=== PATIENT | male | born 1955 | race Caucasian/White ===

== ENCOUNTER → 2020-05-20 | Outpatient (CLI) | payer MEDICARE, OTHER ==
[2020-05-20 10:27] LABS: ALANINE AMINOTRANSFERASE 26 U/L (0-55); ALBUMIN 4.3 GM/DL (3.2-4.5); ALKALINE PHOSPHATASE 105 U/L (40-136); BILIRUBIN,TOTAL 0.4 MG/DL (0.1-1.0); BUN/CREATININE RATIO 24; CALCIUM 9.8 MG/DL (8.5-10.1); CARBON DIOXIDE 24 MMOL/L (21-32); CHLORIDE 107 MMOL/L (98-107); CREATININE SERUM 0.75 MG/DL (0.60-1.30); GFR ESTIMATED > 60; GLUCOSE 105 MG/DL (70-105); POTASSIUM 4.5 MMOL/L (3.6-5.0); SODIUM 140 MMOL/L (135-145); TOTAL PROTEIN 6.8 GM/DL (6.4-8.2)
[2020-05-20 14:51] LABS: CHOLESTEROL 181 MG/DL (< 200); HDL CHOLESTEROL 55 MG/DL (40-60); TRIGLYCERIDES 64 MG/DL (<150); VLDL CHOLESTEROL 13 MG/DL (5-40)
== END ==
LOC: LAB FS 09:41
PROVIDERS: ATTEND Family Medicine
DX: I10 Essential (primary) hypertension (principal)
CPT/HCPCS: 36415; 80053; 80061

== ENCOUNTER → 2020-09-29 | Outpatient (CLI) | payer MEDICARE, OTHER ==
[~2020-09-29] MED LIST: CATHETER FLUSH 10 ML SYR IV PRN; HOLD METFORMIN - RECEIVED CONTRAST 20 ML VIAL IV SCH; IOHEXOL 350 MG/ML 100 ML (OMNIPAQUE 350) VIAL IV ONE; NS 100 ML (IVPB) BAG IV ONE; RT-ALBUTEROL SULF 2.5 MG/3 ML PRE-MIX VIAL INH ONE
[2020-09-29 07:36] LABS: ALANINE AMINOTRANSFERASE 21 U/L (0-55); ALBUMIN 3.9 GM/DL (3.2-4.5); ALKALINE PHOSPHATASE 100 U/L (40-136); BILIRUBIN,TOTAL 0.4 MG/DL (0.1-1.0); BUN/CREATININE RATIO 23; CALCIUM 9.2 MG/DL (8.5-10.1); CARBON DIOXIDE 25 MMOL/L (21-32); CHLORIDE 108 MMOL/L (98-107); CHOLESTEROL 158 MG/DL (< 200); CREATININE SERUM 0.78 MG/DL (0.60-1.30); GFR ESTIMATED > 60; GLUCOSE 102 MG/DL (70-105); HDL CHOLESTEROL 52 MG/DL (40-60); POTASSIUM 3.8 MMOL/L (3.6-5.0); SODIUM 140 MMOL/L (135-145); TOTAL PROTEIN 6.4 GM/DL (6.4-8.2); TRIGLYCERIDES 58 MG/DL (<150); VLDL CHOLESTEROL 12 MG/DL (5-40)
--- NOTE | 2020-09-29 10:53 | Diagnostic Imaging Report ---
EXAMINATION: CT Chest with intravenous contrast. TECHNIQUE: Multiple contiguous axial images were obtained through the chest after the uneventful administration of intravenous contrast. All CT scans use one or more of the following dose optimizing techniques: automated exposure control, MA and/or KvP adjustment based on a patient size and exam type, or iterative reconstruction. HISTORY: COUGH COMPARISON: None available. FINDINGS: Thyroid: The thyroid is normal. Mediastinum: Heart size is normal without significant pericardial effusion. The aorta is normal in caliber. No suspicious lymphadenopathy. Lungs and airways: There are a few patchy groundglass opacities within the periphery the right lower lobe (series 3 image 96). No pleural effusion or pneumothorax. There is a 1.2 cm round pulmonary nodule within the left lower lobe (series 3 image 105). The airways are normal. Upper abdomen: There is a small hiatal hernia. Musculoskeletal: Compression deformities of the T5 and T10 vertebral bodies. No suspicious osseous lesion. There are multiple chronic left rib fractures. IMPRESSION: 1. A 1.2 cm left lower lobe pulmonary nodule. This could be further evaluated with short-term CT followup in 3 months, PET/CT, or CT-guided biopsy. 2. Patchy peripheral ground glass opacities within the right lower lobe may represent atelectasis or atypical infection. Attention on followup imaging. 3. Age-indeterminate compression deformity T5 and T10 vertebral bodies. Dictated by: Dictated on workstation # [id number]
== END ==
LOC: RT 08:00
PROVIDERS: ATTEND Family Medicine
DX: M51.04 Intervertebral disc disorders with myelopathy, thoracic region (principal); R91.1 Solitary pulmonary nodule; I10 Essential (primary) hypertension; R05 Cough
CPT/HCPCS: 71260; 80053; 80061; 94060; 94726; 94729; G0103; 36415; 84153

== ENCOUNTER → 2020-11-03 | Outpatient (CLI) | payer MEDICARE, OTHER ==
--- NOTE | 2020-11-03 13:35 | Diagnostic Imaging Report ---
INDICATION: Abnormal CT with lung mass in left lower lobe. Study is performed for further evaluation. TECHNIQUE: Serum blood glucose level at the time of injection is 94 mg/dL. Patient was administered 13.6 mCi F-18 FDG intravenously in the right antecubital location and PET imaging was performed from the top of skull to mid thighs. Noncontrast CT was also performed for attenuation correction and anatomic correlation. COMPARISON: No prior PET/CT studies available for comparison. Comparison is made with recent CT chest from 09/29/2020. FINDINGS: There is symmetric activity throughout the brain. Soft tissues of the neck are unremarkable. No mediastinal or hilar hypermetabolism is identified. No pulmonary parenchymal hypermetabolism is identified. In particular, no definite hypermetabolic nodule in the left lower lobe is seen. There is physiologic activity throughout the gastrointestinal and genitourinary tracts of the abdomen and pelvis. No suspicious hypermetabolic foci are identified. IMPRESSION: Unremarkable PET/CT study. No suspicious hypermetabolic foci are identified. In particular, no hypermetabolic nodule in the left lower lobe is identified to account for the nodule noted on CT. Even so, close follow-up with repeat CT chest in three months is recommended to show continued stability. Dictated by: Dictated on workstation # [id number]
== END ==
LOC: RAD 09:35
PROVIDERS: ATTEND Nurse Practitioner Family
DX: J45.909 Unspecified asthma, uncomplicated (principal); R91.8 Other nonspecific abnormal finding of lung field
CPT/HCPCS: 78815; A9552

== ENCOUNTER → 2021-01-19 | Outpatient (CLI) | payer MEDICARE, OTHER ==
[~2021-01-19] MED LIST changes: -RT-ALBUTEROL SULF 2.5 MG/3 ML PRE-MIX VIAL INH ONE
[2021-01-19 08:14] LABS: BUN/CREATININE RATIO 21; CREATININE SERUM 0.78 MG/DL (0.60-1.30); GFR ESTIMATED > 60
--- NOTE | 2021-01-19 09:10 | Diagnostic Imaging Report ---
PROCEDURE: CT chest with contrast only. TECHNIQUE: Multiple contiguous axial images were obtained through the chest after administration of intravenous contrast. Auto Exposure Controls were utilized during the CT exam to meet ALARA standards for radiation dose reduction. DATE: January 19, 2021. COMPARISON: CT chest September 29, 2020. INDICATION: 65-year-old male, follow-up pulmonary nodule. FINDINGS: The lung bases are not entirely included in the [id number] of imaging. There is a noncalcified 6 mm left lower lobe pulmonary nodule on axial image 108. The nodule is decreased in size since September 29, 2020. This nodule previously measured 11 mm in size at that time. There are adjacent pleurally based left lower lobe pulmonary nodules on axial image 4 and adjacent sequential images with the largest measuring up to 6 mm in size. These are unchanged since September 29, 2020. There is no new or enlarging pulmonary nodule. There is no otherwise noted focal airspace consolidation. There is no pneumothorax. There is no pleural effusion. The central airways are patent. There is no identified pulmonary embolus. The heart is not enlarged. There is no pericardial effusion. There is no identified abnormally enlarged mediastinal, hilar, or axillary lymph node meeting CT size criteria for adenopathy. The imaged portions of the upper abdomen are unremarkable. There are incompletely healed fractures of the left ninth, 10th, and 11th ribs. There are bilateral glenohumeral arthritic changes. The left-sided rib fractures are present on at least September 29, 2020. There is a compression deformity of T5 and also of T10, both of which are unchanged since at least September 29, 2020. IMPRESSION: CT CHEST. 1. 6 mm left lower lobe pulmonary nodule which is decreased in size since September 29, 2020. Particularly if no intervention has been performed, this would be compatible with granulomatous, inflammatory, or infectious etiology. 2.. Pleurally-based subcentimeter left lower lobe pulmonary nodule stable since at least September 29, 2020. The largest of these measures 6 mm in size. 3. Prior fracture deformities of the left ninth, 10th, and 11th ribs as well as prior compression deformities of T5 and T10. Dictated by: Dictated on workstation # [id number]
== END ==
LOC: RAD 08:45
PROVIDERS: ATTEND Nurse Practitioner Family
DX: R91.8 Other nonspecific abnormal finding of lung field (principal)
CPT/HCPCS: 36415; 71260; 82565; 84520

== ENCOUNTER → 2021-04-12 | Outpatient (CLI) | payer MEDICARE, OTHER ==
--- NOTE | 2021-04-12 09:45 | Diagnostic Imaging Report ---
PROCEDURE: US Abdomen, limited. TECHNIQUE: Multiple realtime grayscale images were obtained over the abdomen in various projections. INDICATION: Right upper quadrant pain and mass FINDINGS: No mass or fluid collection sonographically apparent. There is sludge in the gallbladder but no shadowing calculi. The gallbladder wall 2 mm non-thickened. There was a negative Lees's sign. There is no bile duct dilatation. Portal vein patent and showed normal hepatopetal directional flow. Liver parenchyma appeared unremarkable. There is no ascites. The unobstructed right kidney appeared normal at 10.1 cm. The visualized portions of the pancreas, aorta and IVC unremarkable. IMPRESSION: Likely small amounts of gallbladder sludge but no stone or cholecystitis. No bile duct dilatation or ascites. No solid or cystic mass sonographically apparent. Dictated by: Dictated on workstation # [id number]
== END ==
LOC: RAD FS 07:15
PROVIDERS: ATTEND Family Medicine
DX: R19.01 Right upper quadrant abdominal swelling, mass and lump (principal); R10.11 Right upper quadrant pain
CPT/HCPCS: 76705

== ENCOUNTER 2021-06-10 05:37 | Outpatient (CLI) | payer MEDICARE, OTHER ==
[~2021-06-10] VITALS: Ht 167.7 cm; Wt 71.4 kg
[2021-06-10] MEDS ORDERED: LOSA1TAB26 PO (15:47)
[2021-06-10] MEDS ORDERED: PRAV20TA3 PO (15:47)
[2021-06-10] MEDS ORDERED: ZOLP10TA PO (15:47)
[2021-06-10] MEDS ORDERED: CALC600T91 PO (15:47)
== END 2021-06-10 15:50 | disposition home or self-care (01) ==
LOC: PREOP 05:37
PROVIDERS: ATTEND Surgery
DX: Z01.818 Encounter for other preprocedural examination (principal)

== ENCOUNTER 2021-06-17 09:15 | Day surgery (SDC) | payer MEDICARE, OTHER ==
--- NOTE | 2021-05-25 14:16 | HISTORY AND PHYSICAL ---
DATE OF SERVICE: DATE OF ADMISSION: ____. ATTENDING PRIMARY CARE PHYSICIAN: Emelina Anna. HISTORY OF PRESENT ILLNESS: The patient is a 66-year-old male who is known to us. He was seen several months ago for a right inguinal hernia, which he reports he first noticed about a year ago, which had become larger in size. He did report a bulging, but denied any pain. It was decided, at that time that he wanted to wait until after his right total knee replacement in April of this year. He was then seen at the end of March of this year and reports he was seen by his primary care physician for complaints of diarrhea for the past three months that occurred after eating. He did undergo a gallbladder ultrasound, which did show a biliary sludge. Upon further questioning, he denied any abdominal pain as well as no nausea or vomiting. He also denied any heartburn or reflux. He does report a family history of gallbladder disease with his mother having her gallbladder removed. PAST MEDICAL HISTORY: Hypertension, hypercholesterolemia, and insomnia. PAST SURGICAL HISTORY: Right leg ORIF, tonsillectomy, and right total knee replacement in 04/2021. ALLERGIES: No known drug allergies. MEDICATIONS: Calcium, zolpidem 10 mg at bedtime, losartan potassium/hydrochlorothiazide 100/12.5 mg daily, and Pravastatin 20 mg daily. SOCIAL HISTORY: Negative for tobacco smoke. Negative for alcohol. FAMILY HISTORY: Mother, hypertension. Brother, diabetes. Paternal grandfather, diabetes. REVIEW OF SYSTEMS: This is a well-nourished male in no acute distress. He is not experiencing any shortness of breath or difficulty breathing. No chest pain, palpitations or diaphoresis. No nausea, vomiting or abdominal pain. He does report frequent episodes of diarrhea, especially after eating, but denies any constipation. No red blood per rectum. No dark tarry stools. No fever or chills. No recent inadvertent weight loss. All other review of systems negative. PHYSICAL EXAMINATION: VITAL SIGNS: Blood pressure is 118/64. Current weight is 157.2 pounds at 5 feet 6 inches. CHEST: Clear. Good breath sounds bilaterally. HEART: Regular, no murmurs. EXTREMITIES: No lower extremity edema. Negative Homans sign. HEENT: No scleral icterus. NECK: No cervical lymphadenopathy. ABDOMEN: Soft and nondistended. There is a right inguinal hernia present, which is reducible; however, tender to palpation. There was no left inguinal hernia identified. SKIN: Warm, dry and pink. NEUROLOGIC: Awake, alert and oriented x3. ASSESSMENT AND PLAN: A 65-year-old male with a symptomatic right inguinal hernia as well as chronic calculous cholecystitis. At this time, the risks and benefits of the procedure as well as the procedure and home care instructions were explained to the patient. The patient verbalized understanding of instructions and agrees to proceed as planned. At this time, we will proceed with scheduling him for a laparoscopic right inguinal hernia repair with mesh and a laparoscopic cholecystectomy. CC: Dr. Emelina Anna - requested, unable to deliver. Job ID: [id number] DocumentID: [id number] Dictated Date: 05/25/2021 13:34:59 Pearl Peller Date: 05/25/2021 13:53:45 Dictated By: MICHAEL JAMA APRN
[2021-06-17] VITALS (11 sets, daily range): BP systolic 119–148; BP diastolic 78–96
[~2021-06-17] VITALS: Ht 167.7 cm; Wt 71.4 kg
[~2021-06-17 09:15] MED LIST changes: +CALC600T91 PO; -CATHETER FLUSH 10 ML SYR IV PRN; -HOLD METFORMIN - RECEIVED CONTRAST 20 ML VIAL IV SCH; -IOHEXOL 350 MG/ML 100 ML (OMNIPAQUE 350) VIAL IV ONE; +LOSA1TAB26 PO; -NS 100 ML (IVPB) BAG IV ONE; +PRAV20TA3 PO; +ZOLP10TA PO
--- NOTE | 2021-06-17 09:24 | Progress Note-Pre Operative ---
Pre-Operative Progress Note H&P Reviewed The H&P was reviewed, patient examined and no changes noted. Date Seen by Provider: Jun 17, 2021 Time Seen by Provider: 09:20 Date H&P Reviewed: Jun 17, 2021 Time H&P Reviewed: 09:15 Pre-Operative Diagnosis: Right inguinal hernia and chronic calculous cholecystitis MICHAEL JAMA APRN Jun 17, 2021 09:24
[2021-06-17] MEDS ORDERED: HYDR-3817 PO (09:25)
--- NOTE | 2021-06-17 09:26 | Discharge Inst-Surgical ---
D/C Lap Instructions-KIDO Reconcile Patient Problems Problems Reviewed?: Yes New, Converted, or Re-Newed RX: RX on Chart Follow Up Appt in 2 weeks Activity as tolerated No driving for 24 hours No driving while on pain medications Incentive Spirometry use every 2 hours while awake Regular Diet Symptoms to Report: Fever over 101 degree F, Nausea/Vomiting Infection Signs and Symptoms to report: Increased redness, Foul odor of wound, Increased drainage Bathing instructions: May shower Operative Area Clean/Dry; Keep incision clean/dry If any problems/questions: Contact your physician or go to Emergency Room MICHAEL JAMA APRN Jun 17, 2021 09:26
[2021-06-17] MEDS ORDERED: ONDANSETRON 4 MG/2 ML (SDV) Z0FRAN IVP PRN ×2 (09:30→13:00)
[2021-06-17] MEDS ORDERED: morphine INJ 10 MG/ML 1ML (SYR OR VIAL) IVP PRN (09:30)
[2021-06-17] MEDS ORDERED: ACETAMINOPHEN 325 MG TABLET PO PRN (09:30)
[2021-06-17] MEDS ORDERED: HYDROcodone/APAP 5 MG/325 MG (LORTAB) TAB PO ONE (09:30)
[2021-06-17] MEDS ORDERED: ceFAZolin INJECTION 1,000 MG in WATER (STERILE) FOR INJECTION 10 ML IV ONE (09:30)
[2021-06-17] MEDS: LACTATED RINGERS 1,000 ML IV PRN ×2 (10:00→11:55)
[2021-06-17] MEDS ORDERED: LIDOCAINE/EPI 1%-1:200,000 (XYLOCAINE) 30 ML VIAL ONE (10:02)
[2021-06-17] MEDS ORDERED: ONDANSETRON 4 MG/2 ML (SDV) Z0FRAN ONE (10:24)
[2021-06-17] MEDS ORDERED: ROCURONIUM 10 MG/ML 5 ML SYRINGE IV ONE (10:24)
[2021-06-17] MEDS ORDERED: LIDOCAINE PF 2% 5 ML (XYLOCAINE) VIAL ONE (10:24)
[2021-06-17] MEDS ORDERED: MIDAZOLAM 2 MG/2 ML (VERSED) VIAL ONE (10:24)
[2021-06-17] MEDS ORDERED: fentaNYL INJ 100 MCG/2 ML AMP ONE (10:24)
[2021-06-17] MEDS ORDERED: proPOfol 200 MG/20 ML (DIPRIVAN) VIAL IV ONE (10:24)
[2021-06-17] MEDS ORDERED: GLYCOPYRROLATE 0.2 MG/ML (ROBINUL) 2 ML VIAL ONE (10:24)
[2021-06-17] MEDS ORDERED: NEOSTIGMINE 3 MG/3 ML VIAL ONE (10:24)
[2021-06-17] MEDS ORDERED: SEVOFLURANE (ULTANE) 15 ML INHAL SOLN ONE (12:53)
--- NOTE | 2021-06-17 12:58 | Progress Note-Post Operative ---
Post-Operative Progess Note Surgeon (s)/In Store Marketer (s) Surgeon JEZ GASTON MD In Store Marketer: none Pre-Operative Diagnosis Right inguinal hernia and chronic calculous cholecystitis Post-Operative Diagnosis same Procedure & Operative Findings Date of Procedure 06/17/21 Procedure Performed/Findings laparoscopic right inguinal hernia repair with mesh. laparoscopic cholecystectomy. Anesthesia Type get Estimated Blood Loss Estimated blood loss (mL): minimal Specimens/Packing Specimens Removed gallbladder JEZ GASTON MD Jun 17, 2021 12:58
[2021-06-17] MEDS ORDERED: morphine INJ 10 MG/ML 1ML (SYR OR VIAL) IVP ONE (13:00)
[2021-06-17] MEDS ORDERED: HYDROmorphone 2 MG/ML VIAL (DILAUDID) IV ONE (13:00)
--- NOTE | 2021-06-17 14:06 | OPERATIVE REPORT ---
DATE OF SERVICE: 06/17/2021 ATTENDING PRIMARY CARE PHYSICIAN: Dr. Emelina Anna. PREOPERATIVE DIAGNOSES: 1. Symptomatic chronic calculous cholecystitis. 2. Symptomatic reducible right inguinal hernia. POSTOPERATIVE DIAGNOSES: 1. Symptomatic chronic calculous cholecystitis. 2. Symptomatic reducible right inguinal hernia. PROCEDURE: Laparoscopic right inguinal hernia repair with mesh, laparoscopic cholecystectomy. SURGEON: Jez Gaston MD. ANESTHESIA: General endotracheal. ESTIMATED BLOOD LOSS: Minimal. FINDINGS: 1. Symptomatic chronic calculous cholecystitis. 2. Symptomatic reducible right inguinal hernia. DISPOSITION: The patient tolerated the procedure well. INDICATIONS: The patient is a 66-year-old male who has two separate issues. He reports that he has had pain and bloating in the right upper abdominal quadrant as well as diarrhea on intermittent basis. He states that this was initially mild; however, has become worse and due to this, he has lost weight in the past few months. An ultrasound was performed, which was consistent with biliary sludge. He also does have a symptomatic right inguinal hernia, he states this has been around for years; however, has grown larger in size and become painful. Upon examination, he was found to have a right reducible inguinal hernia; however, tender to palpation. DESCRIPTION OF PROCEDURE: The patient was brought to the operating room, laid supine on the table. After adequate IV pain and sedative medications and general endotracheal intubation, the abdomen was prepped and draped in standard surgical fashion. A 0.5% Marcaine with epinephrine was used to anesthetize overlying skin in the left lateral abdomen and a transverse skin incision made using a 15 blade. An 0 silk suture was applied to the medial aspect of the incision for retraction and a Veress needle inserted with a low opening pressure of 0 mmHg. The abdomen was then insufflated to 15 mmHg pressure. The Veress needle removed, and a 5 mm XL trocar placed followed by a 5 mm 45-degree angle laparoscope visualizing the peritoneal cavity. A 4-quadrant abdominal exploration was performed. There were omental adhesions towards the fundus of the gallbladder. There was a right indirect inguinal hernia with nothing within the hernia sac. No left inguinal hernia component. Under direct visualization, we proceeded to place a supraumbilical 10 mm port after the skin and peritoneal lining were anesthetized using 0.5% Marcaine with epinephrine and a transverse skin incision made using 15 blade. In a similar manner, a right lateral 5 mm port was placed. The patient was then placed in Trendelenburg position. The peritoneal lining was then opened towards the conjoined tendon and inguinal ligament laterally using the Sonicision. We then proceeded medially until Chacorta's ligament identified. We then proceeded with inferior dissection encompassing the hernia sac. The cord and its surrounding contents identified and spared throughout the process. Good hemostasis was observed and a 3DMax polypropylene mesh was then placed through the 10 mm port and tacked to Chacorta's ligament medially and the conjoined tendon and inguinal ligament laterally using absorbable tacks. The peritoneal lining was then placed over the mesh and a few tacks placed to hold this in place with visualization of good hemostasis. The patient was then placed in reverse Trendelenburg position and plane right side up, left side down. The fundus of the gallbladder was then retracted anteriorly and superiorly. The omental adhesions were then taken down using electrocautery on the hook instrument. The hepatoduodenal ligament was then opened using blunt dissection as well as electrocautery on hook instrument. The entire critical view of safety was identified including the triangle of Calot as well as the cystic duct and artery as only two structures going into the gallbladder as well as the cystic plate behind the proximal gallbladder. A timeout was then taken, and the cystic duct and artery were then clipped proximally and distally and cut with EndoShears. The gallbladder was then dissected off the liver bed using cautery on hook instrument with visualization of good hemostasis as well as no leaking ducts of Luschka. The gallbladder was removed through the 10 mm port site using an EndoCatch bag. The 10 mm port site fascia and peritoneum were then closed under direct visualization using a Reji-Willie device and 0 Vicryl suture. The abdomen was desufflated and the remaining ports removed. All skin incisions were closed using 4-0 Monocryl running subcuticular sutures. Wounds were then cleaned and covered with Dermabond. The patient tolerated the procedure well. We will start IV normal pain medication as well as a clear liquid diet. Once he is tolerating clears, has good pain control with oral pain medications, ambulating well, we will discharge him home where he will be instructed to do no heavy lifting or exertion definitely for the first 2 weeks; however, after 2 weeks, he still may not proceed with 100% activity and lifting and to slowly work up to the point of 6 weeks for he then does not have any restrictions. Job ID: [id number] DocumentID: [id number] Dictated Date: 06/17/2021 13:15:45 Vp Cardiovascular Date: 06/17/2021 14:06:02 Dictated By: JEZ GASTON MD
[2021-06-17] MEDS ORDERED: HYDROcodone/APAP 5 MG/325 MG (LORTAB) TAB ONE (14:49)
== END 2021-06-17 15:00 | disposition home or self-care (01) ==
LOC: SDC 09:15
PROVIDERS: ATTEND Surgery
DX: K80.10 Calculus of gallbladder with chronic cholecystitis without obstruction (principal); K40.90 Unilateral inguinal hernia, without obstruction or gangrene, not specified as recurrent; I10 Essential (primary) hypertension; J45.909 Unspecified asthma, uncomplicated; E78.00 Pure hypercholesterolemia, unspecified; Z79.899 Other long term (current) drug therapy
CPT/HCPCS: 47562; 49650; 87081; C1781

== ENCOUNTER → 2021-12-17 | Outpatient (CLI) | payer MEDICARE, OTHER ==
[~2021-12-17] MED LIST changes: +HYDR-3817 PO
--- NOTE | 2021-12-17 08:27 | Diagnostic Imaging Report ---
PROCEDURE: CT sinuses without contrast TECHNIQUE: Multiple contiguous axial images were obtained through the sinuses without the use of intravenous contrast. Coronal and sagittal reformations were then performed. Auto Exposure Controls were utilized during the CT exam to meet ALARA standards for radiation dose reduction. INDICATION: Chronic sinusitis. FINDINGS: There is rightward deviation of the nasal septum with posterior leftward nasal septal spurring. There is moderately severe mural thickening throughout the frontal, sphenoid and maxillary sinuses with opacification of ethmoid air cells. This does appear to occlude the ostiomeatal complexes bilaterally. Mastoid air cells are clear as are middle ear cavities. No definite bone destruction is seen. There is no obvious air-fluid level. Note is made of impacted retrograde incisor to the left of midline in the left maxilla. IMPRESSION: Extensive chronic pain sinusitis without air-fluid level or definite bone destruction. Dictated by: Dictated on workstation # [id number]
== END ==
LOC: RAD FS 07:55
PROVIDERS: ATTEND Otolaryngology Otolaryngology/Facial Plastic Surgery
DX: J32.9 Chronic sinusitis, unspecified (principal)
CPT/HCPCS: 70486

== ENCOUNTER 2022-02-17 08:16 | Outpatient (CLI) | payer MEDICARE, OTHER ==
[~2022-02-17] VITALS: Ht 167.7 cm; Wt 72.7 kg
[2022-02-17 09:15] VITALS: BP 109/81
[2022-02-17 09:32] LABS: BASOPHILS # (AUTO) 0.1 10^3/uL (0.0-0.1); BASOPHILS % (AUTO) 1 % (0-10); EOSINOPHILS # (AUTO) 0.3 10^3/uL (0.0-0.3); EOSINOPHILS % (AUTO) 4 % (0-10); HEMATOCRIT 36 % (40-54); HEMOGLOBIN 12.2 g/dL (13.3-17.7); LYMPHOCYTES % (AUTO) 15 % (12-44); MEAN CORPUSCULAR HEMOGLOBIN 30 pg (25-34); MEAN CORPUSCULAR HGB CONC 34 g/dL (32-36); MEAN CORPUSCULAR VOLUME 89 fL (80-99); MEAN PLATELET VOLUME 8.5 fL (9.0-12.2); MONOCYTES # (AUTO) 0.6 10^3/uL (0.0-1.0); MONOCYTES % (AUTO) 9 % (0-12); NEUTROPHILS # (AUTO) 4.9 10^3/uL (1.8-7.8); NEUTROPHILS % (AUTO) 71 % (42-75); PLATELET COUNT 290 10^3/uL (130-400); WHITE BLOOD COUNT 6.8 10^3/uL (4.3-11.0)
[2022-02-17 09:41] LABS: CALCIUM 9.6 MG/DL (8.5-10.1)
[2022-02-17 09:46] LABS: CREATININE SERUM 0.76 MG/DL (0.60-1.30)
--- NOTE | 2022-02-17 11:30 | Diagnostic Imaging Report ---
INDICATION: Pulmonary nodules. Comparison with CT chest from 01/19/2021. FINDINGS: PA and lateral views. Lungs are well aerated. The nodules noted on the left lower lobe on previous CT scan measuring less than 1 cm are not appreciated on today's exam. There are no infiltrates. Heart is not enlarged. No hilar adenopathy. No pneumothorax or pleural effusion. There are old compression fractures of T5 and T10 which do not appear changed. Also old healed rib fractures on the left noted. IMPRESSION: No acute abnormalities demonstrated when compared with previous CT scan. Dictated by: Dictated on workstation # [id number]
== END 2022-02-17 09:34 ==
LOC: PREOP 08:16
PROVIDERS: ATTEND Otolaryngology Otolaryngology/Facial Plastic Surgery
DX: Z01.818 Encounter for other preprocedural examination (principal); J33.9 Nasal polyp, unspecified; J32.4 Chronic pansinusitis
CPT/HCPCS: 36415; 71046; 80048; 85025; 87081; 93005

== ENCOUNTER 2022-02-25 07:25 | Day surgery (SDC) | payer MEDICARE, OTHER ==
[2022-02-25] VITALS (10 sets, daily range): BP systolic 132–161; BP diastolic 93–115
[2022-02-25] MEDS ORDERED: BSS 15 ML ONE (07:47)
[2022-02-25] MEDS ORDERED: LIDOCAINE/EPI 2% 1:200,00 (XYLOCAINE) 10 ML VIAL ONE (07:47)
[2022-02-25] MEDS ORDERED: COCAINE HCL 4% 2 ML SYR ONE (07:47)
[2022-02-25] MEDS ORDERED: PHENYLEPHRINE 0.5% NASAL SPR (NEO-SYNEPHRINE) REG ONE (07:47)
[2022-02-25] MEDS ORDERED: HYDROCORTISONE 100 MG/2 ML (Solu-CORTEF) VIAL IV SCH (08:15)
[2022-02-25] MEDS ORDERED: fentaNYL INJ 100 MCG/2 ML AMP ONE (08:21)
[2022-02-25] MEDS ORDERED: MIDAZOLAM 2 MG/2 ML (VERSED) VIAL ONE (08:21)
[2022-02-25] MEDS ORDERED: ROCURONIUM 50 MG/5 ML (ZEMURON) VIAL IV ONE (08:21)
[2022-02-25] MEDS ORDERED: ONDANSETRON 4 MG/2 ML (SDV) Z0FRAN ONE (08:21)
[2022-02-25] MEDS ORDERED: proPOfol 200 MG/20 ML (DIPRIVAN) VIAL IV ONE (08:21)
[2022-02-25] MEDS ORDERED: LIDOCAINE PF 2% 5 ML (XYLOCAINE) VIAL ONE (08:21)
[2022-02-25] MEDS: LACTATED RINGERS 1,000 ML IV PRN ×2 (08:26→09:23)
--- NOTE | 2022-02-25 08:51 | Progress Note-Pre Operative ---
Pre-Operative Progress Note H&P Reviewed The H&P was reviewed, patient examined and no changes noted. Date Seen by Provider: Feb 25, 2022 Time Seen by Provider: 08:30 Date H&P Reviewed: Feb 25, 2022 Time H&P Reviewed: 08:30 Pre-Operative Diagnosis: Bilat Chronic Sinusitis, Dev septum hyper inf turbs MAYTE CHAO MD Feb 25, 2022 08:51
--- NOTE | 2022-02-25 08:52 | Progress Note-Post Operative ---
Post-Operative Progess Note Surgeon (s)/Hoop Coiling Machine Operator (s) Surgeon MAYTE CHAO MD Hoop Coiling Machine Operator n/a Pre-Operative Diagnosis Bilat Chronic Sinusitis, Dev septum hyper inf turbs Post-Operative Diagnosis same Post-Op Procedure Note Date of Procedure: Feb 25, 2022 Name of Procedure Performed: Bilat ESs with REmoval of Nasal Polyps, Nasal Septoplasty, Bilat Reduction of INf Turbs Description & Findings Description and Findings: n/a Anesthesia Type get Estimated Blood Loss minimal Packing none. Specimen(s) collected/removed bilat chornic sinusitis MAYTE CHAO MD Feb 25, 2022 08:52
[2022-02-25] MEDS ORDERED: predniSONE 20 MG TAB PO ONE ×2 (09:00→12:30)
[2022-02-25] MEDS ORDERED: D5 1/2 NS W/KCL 20 MEQ/L 1,000 ML IV SCH (09:00)
[2022-02-25] MEDS ORDERED: PROMETHAZINE INJ 25 MG/ML (PHENERGAN) AMP IVP PRN (09:00)
[2022-02-25] MEDS ORDERED: HYDROcodone/APAP 5 MG/325 MG (LORTAB) TAB PO PRN (09:00)
[2022-02-25] MEDS: AMPICILLIN/SULBACTAM INJECTION 1.5 GM in NS (IVPB) 100 ML IV SCH ×2 (09:13→12:08)
[2022-02-25] MEDS ORDERED: GLYCOPYRROLATE 0.2 MG/ML (ROBINUL) 2 ML VIAL ONE (10:02)
[2022-02-25] MEDS ORDERED: NEOSTIGMINE 3 MG/3 ML VIAL ONE (10:02)
[2022-02-25] MEDS ORDERED: SEVOFLURANE (ULTANE) 15 ML INHAL SOLN ONE (10:10)
[2022-02-25] MEDS ORDERED: ONDANSETRON 4 MG/2 ML (SDV) Z0FRAN IVP PRN (10:30)
[2022-02-25] MEDS ORDERED: HYDROmorphone 2 MG/ML VIAL (DILAUDID) IV ONE (10:30)
[2022-02-25] MEDS ORDERED: MEPERIDINE (DEMEROL) INJ 50 MG/ML IVP ONE (10:30)
[2022-02-25] MEDS ORDERED: morphine INJ 10 MG/ML 1ML (SYR OR VIAL) IVP ONE (10:30)
[2022-02-25] MEDS ORDERED: PROMETHAZINE INJ 25 MG/ML (PHENERGAN) AMP IVP ONE (10:30)
[2022-02-25] MEDS ORDERED: PRD20T PO ×2 (12:42)
[2022-02-25] MEDS ORDERED: ACHD5005 PO (12:42)
[2022-02-25] MEDS ORDERED: AMOX-355 PO (12:42)
--- NOTE | 2022-03-08 12:36 | Anesthesia-General Post-Op ---
General Patient Condition Mental Status/LOC: Same as Preop Cardiovascular: Satisfactory Nausea/Vomiting: Absent Respiratory: Satisfactory Pain: Controlled Complications: Absent Post Op Complications Complications None Follow Up Care/Instructions Patient Instructions None needed. Anesthesia/Patient Condition Patient Condition Patient is doing well, no complaints, stable vital signs, no apparent adverse anesthesia problems. No complications reported per nursing. MIKAELA SIMMS CRNA Mar 08, 2022 12:36
== END 2022-02-25 13:15 | disposition home or self-care (01) ==
LOC: SDC 07:25
PROVIDERS: ATTEND Otolaryngology Otolaryngology/Facial Plastic Surgery
DX: J32.9 Chronic sinusitis, unspecified (principal); J33.9 Nasal polyp, unspecified; J34.2 Deviated nasal septum; J34.3 Hypertrophy of nasal turbinates; R09.81 Nasal congestion
CPT/HCPCS: 87081

== ENCOUNTER → 2022-05-27 | Outpatient (CLI) | payer MEDICARE, OTHER ==
[~2022-05-27] MED LIST changes: +ACHD5005 PO; +AMOX-355 PO; +PRD20T PO
[2022-05-27 14:07] LABS: ALBUMIN 4.4 GM/DL (3.2-4.5); BILIRUBIN,TOTAL 0.7 MG/DL (0.1-1.0); CALCIUM 10.1 MG/DL (8.5-10.1); CREATININE SERUM 0.74 MG/DL (0.60-1.30); TOTAL PROTEIN 7.3 GM/DL (6.4-8.2)
== END ==
LOC: LAB FS 13:30
PROVIDERS: ATTEND Family Medicine
DX: Z23 Encounter for immunization (principal); G47.09 Other insomnia; I10 Essential (primary) hypertension; E78.5 Hyperlipidemia, unspecified
CPT/HCPCS: 36415; 80053; 80061

== ENCOUNTER → 2023-05-22 | Outpatient (CLI) | payer MEDICARE, OTHER ==
--- NOTE | 2023-05-22 13:08 | Diagnostic Imaging Report ---
INDICATION: Cervicalgia. COMPARISON: None FINDINGS: Frontal, lateral, and open-mouth radiographic views of the cervical spine were obtained. Static alignment is maintained. There is no significant anterolisthesis or retrolisthesis. There is no evidence of jumped facets. Open-mouth view is suboptimal, but shows appropriate C1-C2 alignment. Vertebral body heights are maintained. There is no acute fracture. Moderate multilevel degenerative changes are present and consists of intervertebral disc height loss with anterior and posterior endplate osteophyte formations, greatest at the C4-C5 through C6-C7 levels. Surrounding soft tissue structures are unremarkable. IMPRESSION: 1. No acute fracture or dislocation cervical spine. 2. Moderate multilevel degenerative changes. Dictated by: Dictated on workstation # [id number]
== END ==
LOC: RAD FS 12:21
PROVIDERS: ATTEND Emergency Medicine
DX: M47.812 Spondylosis without myelopathy or radiculopathy, cervical region (principal)
CPT/HCPCS: 72040